=== PATIENT | male | born 1930 | race Caucasian/White ===

== ENCOUNTER 2016-06-23 12:51 | Inpatient (IN) | payer MEDICARE ==
[2016-06-23] MEDS ORDERED: SODIUM CHLORIDE 0.9% 10 ML FLUSH FLUSH PRN (13:31)
--- NOTE | 2016-06-23 13:42 | EDPRACDOC ---
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 FELL ON CONCRETE. STATES HE TRIED TO STAND, BUT WAS UNABLE TO DO SO. NO OTHER INJURY REPORT. PT DENIES PAIN UNLESS HE MOVES. Pain Severity: Reports: Moderate Injuries/Pain Location: Reports: pelvis, lower extremity Reason for Fall: Reports: tripped Loss of Consciousness: no loss of consciousness Modifying Factors: improves with: movement Associated Symptoms (Fall): Reports: denies symptoms <Stephanie Evans - Last Filed: 06/23/16 14:47> <Yo Lorenzo - Last Filed: 06/23/16 14:57> - General Chief Complaint: Fall Stated Complaint: FALL, L LEG PAIN Time Seen by Provider: 06/23/16 12:56 - History of Present Illness Allergies/Adverse Reactions: Allergies No Known Allergies Allergy (Verified 06/23/16 14:47) Home Medications: Ambulatory Orders Allopurinol [Zyloprim] 100 mg PO DAILY 04/30/13 Gabapentin [Neurontin] 800 mg PO DAILY 04/30/13 Amiodarone [Cordarone, Pacerone] 200 mg PO DAILY 05/30/16 Lisinopril [Prinivil] 20 mg PO DAILY 05/30/16 Albuterol/Ipratropium Neb [Duoneb] 3 ml NEB Q6H #40 nebu 06/06/16 Guaifenesin [Mucinex] 1,200 mg PO BID #20 tbmp.12hr 06/06/16 Levalbuterol [Xopenex Hfa] 15 gm IH Q6 #2 inh 06/06/16 Prednisone 10 mg PO DAILY #20 tab.ds.pk 06/06/16 ED Past Medical History - History Reviewed Yes Nurses notes reviewed and agree except as marked - Patient Medical History Cardiac History: Reports: Atrial Fibrillation (NEW AFIB APR 2013), Hypertension , Hypercholesterolemia. 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 Denies: Cardiac Catheterization - Family Medical History Reports: Hypertension, Cancer (mom). Denies: Diabetes, Stroke, Cardiac Disorders - Social Medical History Smoking Status: Former smoker Social History: Denies: Substance Use Disorder <Stephanie Evans - Last Filed: 06/23/16 14:47> EDM Review of Systems - Review of Systems ROS Negative Except as Marked: Yes All systems reviewed and were negative except as marked Constitutional: No Symptoms Reported Respiratory: No Symptoms Reported Cardiovascular: No Symptoms Reported Gastrointestinal: No Symptoms Reported Neurological: No Symptoms Reported Musculoskeletal: Hip, Knee Integumentary: No Symptoms Reported <Stephanie Evans - Last Filed: 06/23/16 14:47> - Physical Exam Constitutional: Alert (Awake), No apparent distress Oriented to: Time, Person, Place Last recorded Vital Signs: Last Vital Signs Temp 98.3 F 06/23/16 12:52 Pulse 90 06/23/16 12:52 Resp 20 06/23/16 12:52 BP 153/69 06/23/16 12:52 Pulse Ox 93 06/23/16 12:52 Oxygen Pulse Oxygen Saturation 93 O2 Device Nasal Cannula Oxygen Flow Rate 2.5 Fraction of Inspired Oxygen ( FIO2) - HEENT Head: Normal Eye Exam: Normal Neck: Normal, Denies Pain, Midline - Respiratory/Cardiovascular Respiratory: Normal - CTA Cardiovascular: Normal - GI Palpation: Normal Tenderness: Non tender - Musculoskeletal Back: Normal Extremities: Other (NOTED EXTERNAL ROTATION OF LEFT LEG; TENDERNESS WITH MOVEMENT OF KNEE/HIP ONLY; NO TTP; NO BRUISING OR APPARENT DEFORMITY; PEDAL PULSES INTACT) - Integumentary Skin: Normal Lymphatics: Normal - Neurologic Cerebellar: Normal Mood Description: Normal Thought: Coherent Perception: Normal <Stephanie Evans - Last Filed: 06/23/16 14:47> - Physical Exam Last recorded Vital Signs: Last Vital Signs Temp 98.3 F 06/23/16 12:52 Pulse 89 06/23/16 14:03 Resp 20 06/23/16 12:52 BP 142/63 06/23/16 14:03 Pulse Ox 90 L 06/23/16 14:03 Oxygen Pulse Oxygen Saturation 90 O2 Device Nasal Cannula Oxygen Flow Rate 2.5 Fraction of Inspired Oxygen ( FIO2) <Yo Lorenzo - Last Filed: 06/23/16 14:57> - Results 06/23/16 13:14 06/23/16 13:14 <Stephanie Evans K - Last Filed: 06/23/16 14:47> - Results 06/23/16 13:14 06/23/16 13:14 WBC 15.8 xk/uL (3.8-10.8) H 06/23/16 13:14 RBC 4.86 xM/uL (4.70-6.10) 06/23/16 13:14 Hgb 13.0 g/dL (14.0-18.0) L 06/23/16 13:14 Hct 40.6 % (42-52) L 06/23/16 13:14 MCV 84 fL (80-94) 06/23/16 13:14 MCH 26.7 pg (27-32) L 06/23/16 13:14 MCHC 32.0 g/dl (33-36) L 06/23/16 13:14 RDW 15.3 % (11.5-14.5) H 06/23/16 13:14 Plt Count 165 xk/uL (130-400) 06/23/16 13:14 MPV 7.7 fL (7.4-10.4) 06/23/16 13:14 PT 10.6 SEC (9.2-11.2) 06/23/16 13:14 INR 1.0 06/23/16 13:14 APTT 33.8 SEC (22-35) 06/23/16 13:14 Sodium 139 mEq/L (137-146) 06/23/16 13:14 Potassium 3.3 mEq/L (3.5-5.1) L 06/23/16 13:14 Chloride 103 mEq/L (98-107) 06/23/16 13:14 Carbon Dioxide 27 mMOL/L (22-33) 06/23/16 13:14 Anion Gap 12 mEq/L (8-16) 06/23/16 13:14 BUN 16 MG/DL (9-20) 06/23/16 13:14 Creatinine 0.80 MG/DL (0.66-1.25) 06/23/16 13:14 Estimated GFR (MDRD) > 60 mL/min (>=60) 06/23/16 13:14 Glucose 97 MG/DL (70-99) 06/23/16 13:14 Calculated Osmolality 269 MOs/Kg (270-290) L 06/23/16 13:14 Calcium 8.0 MG/DL (8.4-10.2) L 06/23/16 13:14 Corrected Calcium 8.7 MG/DL (8.4-10.2) 06/23/16 13:14 Total Bilirubin 1.0 MG/DL (0.2-1.3) 06/23/16 13:14 AST 30 IU/L (17-59) 06/23/16 13:14 ALT 39 IU/L (21-72) 06/23/16 13:14 Alkaline Phosphatase 92 IU/L (50-160) 06/23/16 13:14 Troponin I < 0.01 ng/mL (<.04) 06/23/16 13:14 Total Protein 5.9 G/DL (6.3-8.2) L 06/23/16 13:14 Albumin 3.3 G/DL (3.5-5.0) L 06/23/16 13:14 Lab Results 06/23/16 06/23/16 06/23/16 13:14 13:14 13:14 WBC 15.8 H RBC 4.86 Hgb 13.0 L Hct 40.6 L MCV 84 MCH 26.7 L MCHC 32.0 L RDW 15.3 H Plt Count 165 MPV 7.7 PT 10.6 INR 1.0 APTT 33.8 Sodium 139 Potassium 3.3 L Chloride 103 Carbon Dioxide 27 Anion Gap 12 BUN 16 Creatinine 0.80 Estimated GFR (MDRD) > 60 Glucose 97 Calculated Osmolality 269 L Calcium 8.0 L Corrected Calcium 8.7 Total Bilirubin 1.0 AST 30 ALT 39 Alkaline Phosphatase 92 Troponin I < 0.01 Total Protein 5.9 L Albumin 3.3 L <Yo Lorenzo - Last Filed: 06/23/16 14:57> - Departure Disposition: Admit IP To This Hospital Education/Counseling Given To: Patient, Family Member Education/Counseling Given Regarding: Diagnosis, Treatment, Follow Up - Physician Consulted Orthopedics Time Called: 14:49 Provider Called: Cash Rush [employer] Lead Returned Call: 14:49 <Stephanie Evans - Last Filed: 06/23/16 14:47> - Departure Yes I personally saw and evaluated the patient. Disposition: Admit IP To This Hospital Decision to Admit Time: 14:57 Decision to admit date: 06/23/16 Decision to admit: from ED - Physician Consulted Hospitalist Time Called: 14:57 Provider Called: Yogesh Bobby [employer] Lead Returned Call: 14:57 <Yo Lorenzo - Last Filed: 06/23/16 14:57> - Departure Condition: Stable Final Diagnosis: Hip fracture Qualifiers: Encounter type: initial encounter Fracture type: closed Laterality: left Qualified Code(s): S72.002A - Fracture of unspecified part of neck of left femur , initial encounter for closed fracture Referrals: Rylee Fortune MD [Primary Care Provider] - One Week
--- NOTE | 2016-06-23 14:02 | DIRPT ---
CLINICAL DATA: Status post fall today. Left hip pain. Initial encounter. EXAM: LEFT HIP (WITH PELVIS) 2-3 VIEWS COMPARISON: None. FINDINGS: The patient has an acute subcapital left hip fracture with approximately 1/2 shaft with superior displacement of the femoral neck. Femoral head is located. No other acute abnormality is identified. IMPRESSION: Acute subcapital left hip fracture as described. Electronically Signed By: Carlos Alberto Gregory M.D. On: 06/23/2016 14:00
--- NOTE | 2016-06-23 14:03 | DIRPT ---
CLINICAL DATA: Fall, left hip and knee pain. EXAM: LEFT FEMUR - 2 VIEW COMPARISON: None. FINDINGS: Two views of the lower left femur are provided. The mid and lower portions of the left femur appear intact and well aligned throughout. Bone mineralization is unremarkable. Soft tissues are unremarkable. IMPRESSION: Negative exam of the mid and lower portions of the left femur. Electronically Signed By: Cameron Foreman M.D. On: 06/23/2016 14:01
--- NOTE | 2016-06-23 14:03 | DIRPT ---
CLINICAL DATA: Fall with lower extremity pain. EXAM: CHEST 1 VIEW COMPARISON: 06/03/2016 and multiple previous FINDINGS: Heart size is normal. There is atherosclerosis of the aorta. Abnormal interstitial pulmonary opacity bilaterally appears similar to the multiple films of May. No dense consolidation or collapse. No effusions. No acute bone finding. IMPRESSION: Bilateral interstitial pulmonary density similar to the multiple exams of last month. No worsened consolidation or collapse. Electronically Signed By: Hitesh Mitchell M.D. On: 06/23/2016 14:01
--- NOTE | 2016-06-23 14:04 | DIRPT ---
CLINICAL DATA: Knee pain after mechanical fall. EXAM: LEFT KNEE - COMPLETE 4+ VIEW COMPARISON: None. FINDINGS: No fracture of the proximal tibia or distal femur. Patella is normal. No joint effusion. There is spurring of the superior and inferior aspect of patella. IMPRESSION: 1. No acute osseous abnormality. 2. Degenerate change of the patellofemoral compartment. Electronically Signed By: Panchito Quiroz M.D. On: 06/23/2016 14:01
[2016-06-23 14:07] LABS: MPV 7.7 fL (7.4-10.4)
[2016-06-23 14:17] LABS: BLOOD UREA NITROGEN 16 MG/DL (9-20); CALC CORRECTED 8.7 MG/DL (8.4-10.2); CALCULATED OSMOLALITY 269 MOs/Kg (270-290); CHLORIDE 103 mEq/L (98-107); GLUCOSE 97 MG/DL (70-99); SODIUM LEVEL 139 mEq/L (137-146); TOTAL PROTEIN 5.9 G/DL (6.3-8.2)
[2016-06-23 14:26] LABS: PARTIAL THROMB. TIME 33.8 SEC (22-35)
[2016-06-23] MEDS ORDERED: HYDROmorphone 1 MG INJECTION IV ONE (14:41)
[2016-06-23 15:00] LABS: SEG NEUTROPHIL 40 % (45-76)
--- NOTE | 2016-06-23 15:09 | PCM.ORTHCO ---
Consultation Date: 06/23/16 Reason for Consult: Fracture (left hip) - History of Present Illness Mr. Abdalla is am 85 year old male who presented to the ED with left hip pain and inability to bear weight on the left leg after a fall while at home earlier today. He was putting his laundry away, felt his leg go from under him, and fell onto the knee. The floor was concrete. Denies knee pain at this time. He lives at home with his . He ambulates at home without AD, but does use a walker when out of the house. Denies numbness or tingling. He does have a history of hypertension, arrhythmia, and leukemia. Patient was recently being treated for pneumonia as well. Chief Complaint: left hip pain - Past Medical and Surgical History Cardiac History: Reports: Atrial Fibrillation (NEW AFIB APR 2013), Hypertension , Hypercholesterolemia. 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 Denies: Cardiac Catheterization Allergies No Known Allergies Allergy (Verified 06/23/16 14:47) Home Medications Allopurinol [Zyloprim] 100 mg PO DAILY 04/30/13 Gabapentin [Neurontin] 800 mg PO DAILY 04/30/13 Amiodarone [Cordarone, Pacerone] 200 mg PO DAILY 05/30/16 Lisinopril [Prinivil] 20 mg PO DAILY 05/30/16 Albuterol/Ipratropium Neb [Duoneb] 3 ml NEB Q6H #40 nebu 06/06/16 Guaifenesin [Mucinex] 1,200 mg PO BID #20 tbmp.12hr 06/06/16 Levalbuterol [Xopenex Hfa] 15 gm IH Q6 #2 inh 06/06/16 Prednisone 10 mg PO DAILY #20 tab.ds.pk 06/06/16 - Social History Lives: with Spouse Smoking Status: Former smoker Social History: Denies: Substance Use Disorder - Family History Reports: Hypertension, Cancer (mom). Denies: Diabetes, Stroke, Cardiac Disorders - Review of Systems Constitutional: negative: Chills, Fever Respiratory: negative: Shortness of Breath Cardiovascular: negative: Chest Pain Genitourinary: negative: Bleeding Neurological: negative: Numbness, Tingling Musculoskeletal:: Joint Pain (left hip pain with movement) - Physical Exam Vital Signs: Initial Vitals Temperature 98.3 F 06/23/16 12:52 Pulse Rate 90 06/23/16 12:52 Respiratory Rate 20 06/23/16 12:52 Blood Pressure 153/69 06/23/16 12:52 Pulse Oxygen Saturation 93 06/23/16 12:52 Constitutional: No apparent distress, Alert, Well appearing Oriented to: Time, Person, Place - HEENT Head: Normal - Musculoskeletal Extremities: Pedal Pulse, Other (LLE is externally rotated. No significant tenderness about the left hip. Left knee is nontender to palpation. Plantarflexion and dorsiflexion intact. SITLT.) - Neurologic Memory Impaired: Normal Motor Function: Normal Cerebellar: Normal Mood Description: Normal Thought: Coherent Perception: Normal - Lab Results 06/23/16 13:14 06/23/16 13:14 - Diagnostic Findings Exam(s): [id number] RAD/DG HIP COMPLETE 2+V-L CLINICAL DATA: Status post fall today. Left hip pain. Initial encounter. EXAM: LEFT HIP (WITH PELVIS) 2-3 VIEWS COMPARISON: None. FINDINGS: The patient has an acute subcapital left hip fracture with approximately 1/2 shaft with superior displacement of the femoral neck. Femoral head is located. No other acute abnormality is identified. IMPRESSION: Acute subcapital left hip fracture as described. Electronically Signed By: Carlos Albetro Gregory M.D. On: 06/23/2016 14:00 - Assessment/Plan (1) Subcapital fracture of neck of left femur S72.012A - UNSP INTRACAPSULAR FRACTURE OF LEFT FEMUR, INIT FOR CLOS FX Acute Present on Admission: Yes Case Care Discussed with: Patient, Family Plan: Risks and benefits of surgery discussed with patient and family. Risks include but not limited to infection, damage to blood vessels and nerves, risks of anesthesia, need for further surgery, and blood clots. Agree to proceed. Consent was obtained/signed. Plan for left hip hemiarthroplasty tomorrow morning with Dr. Rush. Continue pain management
[2016-06-23 15:12] LABS: LEUKOCYTES/URINE NEG (NEGATIVE); NITRITE/URINE NEG (NEGATIVE); RBC/URINE 0-2 (0-2); URINE OCCULT BLOOD NEG (NEG/TRACE); WBC/URINE 0-2 (0-2)
[2016-06-23] MEDS ORDERED: CHLORHEXIDINE (HIBICLENS) 4 OZ BOTTLE TOP ONE ×2 (15:19→15:48)
--- NOTE | 2016-06-23 15:27 | HISTPHYS ---
- Chief Complaint Fell at home broke my left hip today - History of Present Illness Patient is a very pleasant 85-year-old white male brought into emergency room after falling and hitting his left hip on the concrete floor at home today when he states his left leg shifted. He has a history of CLL, gout, post herpetic neuralgia, mild hypertension on p.r.n. lisinopril, interstitial scarring chest x-ray with recent respiratory tract infection, atrial fibrillation and Xarelto was discontinued due to heme-positive stools. His atrial fib is controlled with amiodarone and he takes aspirin as an anticoagulant. He used to see Dr. Lopez for his atrial fib, but has no battery loader at this point time. 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 - Medical History Cardiac History: Reports: Atrial Fibrillation (NEW AFIB APR 2013), Hypertension , Hypercholesterolemia. Denies: Heart Attack, Cardiac Catheterization Respiratory History: Reports: Emphysema (Former smoker). 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 Denies: Cardiac Catheterization Pilonidal cyst removed as teenager - Medictions/Allergies Allergies No Known Allergies Allergy (Verified 06/23/16 14:47) Current Medication List: Reviewed Home Medications Allopurinol [Zyloprim] 100 mg PO DAILY 04/30/13 Gabapentin [Neurontin] 800 mg PO DAILY 04/30/13 Amiodarone [Cordarone, Pacerone] 200 mg PO DAILY 05/30/16 Lisinopril [Prinivil] 20 mg PO DAILY 05/30/16 Albuterol/Ipratropium Neb [Duoneb] 3 ml NEB Q6H #40 nebu 06/06/16 Guaifenesin [Mucinex] 1,200 mg PO BID #20 tbmp.12hr 06/06/16 Levalbuterol [Xopenex Hfa] 15 gm IH Q6 #2 inh 06/06/16 Prednisone 10 mg PO DAILY #20 tab.ds.pk 06/06/16 - Family History Reports: Hypertension, Cancer (mom). Denies: Diabetes, Stroke, Cardiac Disorders - Social History Travel Outside of [place] in the Last 3 Months?: No Lives: with Spouse Smoking Status: Former smoker Social History: Reports: Alcohol Use. Denies: Substance Use Disorder - Review of Systems Constitutional: No Symptoms Reported (No Fever, chills, wt loss/gain, diaphoresis,fatigue/malaise.) Eyes: No Symptoms Reported (No blurry vision, visual changes, eye pain, or eye redness.) Ears: No Symptoms Reported (No ear pain or discharge) Nose: No Symptoms Reported (No nasal discharge/congestion or bleeding) Mouth: No Symptoms Reported (No oropharyngeal lesions or erythema) Throat/Neck: No Symptoms Reported (No throat pain or swelling.No oropharyngeal lesions or erythema.) Respiratory: No Symptoms Reported (No cough, wheezing, or shortness of breath.) Cardiovascular: No Symptoms Reported (No chest pain or palpitations.) Gastrointestinal: No Symptoms Reported (No abdominal pain, nausea, vomiting, diarrhea, constipation, or bloody stool.) Genitourinary: No Symptoms Reported (No dysuria or hematuria.) Neurological: Other (Post herpetic neuralgia) Musculoskeletal:: Gout (Many years ago) Integumentary: No Symptoms Reported (no rashes or lesions) Allergic/Immunologic: No Symptoms Reported (no rashes or lesions) Hematologic: No Symptoms Reported (No chronic anemia, bleeding, or easy bruising.), Other (Xarelto had to be stopped due to heme-positive stools) Endocrine: No Symptoms Reported (No thyroid issues, polyuria, or polydipsia.) Psychiatric: No Symptoms Reported (Fully oriented, with normal and appropriate affect.) - Physical Exam Vital Signs: Initial Vitals Temperature 98.3 F 06/23/16 12:52 Pulse Rate 90 06/23/16 12:52 Respiratory Rate 20 06/23/16 12:52 Blood Pressure 153/69 06/23/16 12:52 Pulse Oxygen Saturation 93 06/23/16 12:52 Constitutional: Alert (Awake, Fully oriented. Normal and appropriate affect.Well appearing. Well nourished.), No apparent distress Oriented to: Time, Person, Place - HEENT Head: Normal (normocephalic, atraumatic.), Other (No cervical lymphadenopathy. No supraclavicular lymphadenopathy. Neck: No palpable mass, supple , trachea midline.) Eye: Normal (pupils equal, reactive to light, and round; EOMI, Sclera white) Oropharynx: Normal (Pharynx: Moist without exudate,Gums-no swelling, No oropharyngeal lesions or erythema, Mucous membranes are dry.) Tympanic Membrane: Normal (no discharge) ENT EAC: Normal (No oropharyngeal lesions or erythema. Mucous membranes are dry. ) TMJ: Normal Nose: No Symptoms Reported (septum midline, Nares patent, without discharge or bleeding.) Respiratory: Normal - CTA (Clear to auscultation bilaterally. No wheezing, rales , rhonchi. Chest wall movements are symmetric. No use of accessory muscles to breathe.) Cardiovascular: Normal (RRR , Normal S1, S2. No murmurs, rubs, or gallops. PMI non-displaced. Carotids: no carotid bruits. No bradycardia or tachycardia. DP pulses 2+ bilaterally.) - GI Auscultation: Normal (normal active sounds) Palpation: Normal (Soft,non distended,nontender. No hepatosplenomegaly.) Tenderness: Non tender (No rebound or guarding) Gregory's Sign: Negative - Musculoskeletal Back: Normal (Non-Tender) Extremities: Normal (Normal tone, DP pulses 2+ bilaterally, No cyanosis or edema bilaterally, FROM bilaterally.) Spine: non-tender - Integumentary Skin: Normal (Clean, dry, and intact. No rashes. No lesions.) Lymphatics: Normal (No cervical lymphadenopathy. No supraclavicular lymphadenopathy.) - Neurologic Memory Impaired: Normal Motor Function: Normal (Motor 5/5 throughout.Normal tone, Pulses 2+ No cyanosis or edema, FROM) Cranial Nerve: Normal (CN II-XII intact sensation, strength 5/5) Cerebellar: Normal (Babinski: toes downgoing bilaterally. Intact Finger to nose. Sensory grossly intact to light touch. Intact rapid alternating movements bilaterally. No pronator drift.) Mood Description: Normal (Fully oriented. Normal and appropriate affect.) Thought: Coherent Perception: Normal (Normal and appropriate affect.) - Focused CV Perfusion Exam Vital Signs: Last Vital Signs Temp 98.3 F 06/23/16 12:52 Pulse 89 06/23/16 14:03 Resp 20 06/23/16 12:52 BP 142/63 06/23/16 14:03 Pulse Ox 90 L 06/23/16 14:03 - Lab Results 06/23/16 13:14 06/23/16 13:14 Laboratory Results - last 24 hr 06/23/16 06/23/16 06/23/16 13:14 13:14 13:14 WBC 15.8 H RBC 4.86 Hgb 13.0 L Hct 40.6 L MCV 84 MCH 26.7 L MCHC 32.0 L RDW 15.3 H Plt Count 165 MPV 7.7 Neut % (Auto) Cancelled Lymph % (Auto) Cancelled Winn % (Auto) Cancelled Eos % (Auto) Cancelled Baso % (Auto) Cancelled Absolute Neuts (auto) Cancelled Absolute Lymphs (auto) Cancelled Seg Neuts % (Manual) 40 L Band Neutrophils % 2 Lymphocytes % (Manual) 51 H Monocytes % (Manual) 5 Eosinophils % (Manual) 2 Absolute Neutrophils 6.64 Absolute Lymphocytes 8.06 H Atypical Lymphocytes Mod amt Platelet Estimate Norm RBC Morphology Norm PT 10.6 INR 1.0 APTT 33.8 Sodium 139 Potassium 3.3 L Chloride 103 Carbon Dioxide 27 Anion Gap 12 BUN 16 Creatinine 0.80 Estimated GFR (MDRD) > 60 Glucose 97 Calculated Osmolality 269 L Calcium 8.0 L Corrected Calcium 8.7 Total Bilirubin 1.0 AST 30 ALT 39 Alkaline Phosphatase 92 Troponin I < 0.01 Total Protein 5.9 L Albumin 3.3 L Urine Color Urine Clarity Urine pH Ur Specific [place] Urine Protein Urine Glucose (UA) Urine Ketones Urine Occult Blood Urine Nitrite Urine Bilirubin Urine Urobilinogen Ur Leukocyte Esterase Urine RBC Urine WBC Urine Bacteria Hyaline Casts Urine Mucus Blood Type Antibody Screen 06/23/16 06/23/16 06/23/16 14:28 14:42 17:00 WBC RBC Hgb Hct MCV MCH MCHC RDW Plt Count MPV Neut % (Auto) Lymph % (Auto) Winn % (Auto) Eos % (Auto) Baso % (Auto) Absolute Neuts (auto) Absolute Lymphs (auto) Seg Neuts % (Manual) Band Neutrophils % Lymphocytes % (Manual) Monocytes % (Manual) Eosinophils % (Manual) Absolute Neutrophils Absolute Lymphocytes Atypical Lymphocytes Platelet Estimate RBC Morphology PT INR APTT Sodium Potassium Chloride Carbon Dioxide Anion Gap BUN Creatinine Estimated GFR (MDRD) Glucose Calculated Osmolality Calcium Corrected Calcium Total Bilirubin AST ALT Alkaline Phosphatase Troponin I < 0.01 Total Protein Albumin Urine Color Yellow Urine Clarity Clear Urine pH 6.0 Ur Specific [place] 1.005 Urine Protein 1+ H Urine Glucose (UA) Neg Urine Ketones Neg Urine Occult Blood Neg Urine Nitrite Neg Urine Bilirubin Neg Urine Urobilinogen 2 H Ur Leukocyte Esterase Neg Urine RBC 0-2 Urine WBC 0-2 Urine Bacteria Few Hyaline Casts 2-5 H Urine Mucus Mod H Blood Type O POSITIVE Antibody Screen Negative - Diagnostic Findings Left hip x-ray: Acute subcapital left hip fracture as described. - Assessment (1) Subcapital fracture of neck of left femur S72.012A - UNSP INTRACAPSULAR FRACTURE OF LEFT FEMUR, INIT FOR CLOS FX Acute Present on Admission: Yes Orthopedic consult obtained to get left hemiarthroplasty tomorrow. Patient only taking aspirin 81 mg daily preoperatively as he is unable to tolerate Xarelto. (2) Post herpetic neuralgia B02.29 - OTHER POSTHERPETIC NERVOUS SYSTEM INVOLVEMENT Chronic Present on Admission: Yes Continue gabapentin (3) CLL (chronic lymphocytic leukemia) C91.10 - CHRONIC LYMPHOCYTIC LEUK OF B-CELL TYPE NOT ACHIEVE REMIS Chronic Present on Admission: Yes Monitor counts. White blood cell counts have been stable. (4) Paroxysmal atrial fibrillation I48.0 - PAROXYSMAL ATRIAL FIBRILLATION Chronic Present on Admission: Yes Not taking Xarelto due to heme-positive stools. Control with amiodarone. Case Care Discussed with: Patient, Family, Nursing Staff, Resource Management Total Time: Time spent process One Hour 22 minutes Critical Care: No Code: [id number]
[2016-06-23] MEDS ORDERED: MUPIROCIN 2% OINT 22 GM TUBE NAS SCH (16:00)
[2016-06-23] MEDS: NS/KCl 20 mEq 1,000 ML IV SCH (16:58)
[2016-06-23 17:08] VITALS: BMI 27.1
[2016-06-23] MEDS ORDERED: Vaccine Screening Complete SCH (18:00)
[2016-06-23] MEDS: MORPHINE 2 MG/ML INJECTION IV PRN ×2 (18:04→21:45)
[2016-06-23] MEDS ORDERED: LISINOPRIL 20 MG TAB PO PRN (20:28)
[2016-06-23] MEDS ORDERED: Magnesium Sulfate 2 gm/D5W 2 GM/50 ML RTU IV ONE (21:00)
[2016-06-23] MEDS: POTASSIUM CHLORIDE 20 MEQ TAB PO SCH ×2 (21:05→23:25)
[2016-06-23] MEDS: ACETAMINOPHEN 325 MG/TAB TABLET PO SCH (21:06)
[2016-06-23] MEDS: Albuterol/Ipratropium Neb 3 ML NEB NEB SCH (21:14)
[2016-06-24] MEDS: Albuterol/Ipratropium Neb 3 ML NEB NEB SCH ×4 (02:37→19:14)
[2016-06-24] MEDS: MORPHINE 2 MG/ML INJECTION IV PRN ×3 (03:37→09:36)
[2016-06-24] MEDS: ACETAMINOPHEN 325 MG/TAB TABLET PO SCH ×3 (04:45→21:13)
[2016-06-24] MEDS ORDERED: CEFAZOLIN 1 GM VIAL IV ONE (08:00)
[2016-06-24] MEDS: AMIODARONE 200 MG TAB PO SCH (09:36)
[2016-06-24] MEDS: GABAPENTIN 800 MG TAB PO SCH (09:39)
[2016-06-24] MEDS: ALLOPURINOL 100 MG TAB PO SCH (09:40)
[2016-06-24] MEDS ORDERED: SUCCINYLCHOLINE 20 MG/1 ML INJ 10 ML MDV IV ONE (10:00)
[2016-06-24] MEDS ORDERED: FENTANYL 100 MCG/2 ML VIAL IV ONE (10:00)
[2016-06-24] MEDS ORDERED: PHENYLEPHRINE 10 MG/ML VIAL IC ONE (10:00)
[2016-06-24] MEDS ORDERED: LIDOCAINE 100 MG PFS IV ONE (10:00)
[2016-06-24] MEDS ORDERED: GLYCOPYRROLATE 1 MG VIAL IM ONE (10:00)
[2016-06-24] MEDS ORDERED: PROPOFOL 200 MG/20 ML VIAL IV ONE (10:00)
[2016-06-24] MEDS ORDERED: NEOSTIGMINE 1 MG/1 ML (1:1000) INJ 10 ML MDV IM ONE (10:00)
--- NOTE | 2016-06-24 10:14 | HIM.ANES ---
Anesthesia Evaluation & Plan - Focused Review of Systems Cardiac History: Yes: Hx Hypertension, Hx Afib/Aflutter, Hx Cardiac Disorders, Hx Abnormal Cholesterol/Hyperlipidemia No: Hx Heart Attack, Hx Cardiac Catheterization, Hx Deep Vein Thrombosis HEENT: Yes: Cataracts, Other HEENT Problems Respiratory: Yes: Hx Emphysema (Former smoker), Hx Home O2 (2.5 l/m), Hx Recent Cold/Flu No: Hx Pneumonia Gastrointestinal: Yes: Hx Gastroesophageal Reflux Disease, Hx Gastrointestinal Disorders Neurological/Musculoskeletal: No: Hx Neurological Disorders Psychological: No Hx Depression, No Hx Mental/Emotional Disorders Blood/Autoimmune: No: Hx Blood Transfusions, Hx AIDS, Hx Hepatitis (type) Smoking Status: Former smoker Past Social History: Reports: Alcohol Use. Denies: Substance Use Disorder Hx Echocardiogram (date): Yes (1. There is normal global left ventricular contractility.) Hx Chest Xray (date): Yes (06/23/15) Surgical History: Yes: T&A - Focused Physical Exam NPO since: 0000 Any problems with anesthesia, including nausea and vomiting?: No Any relatives with a history of Malignant Hyperthermia?: No Beta Fausto given (if appropriate): No Other: Problem List Problem Status Onset Hip fracture Acute Subcapital fracture of neck of left femur Acute Paroxysmal atrial fibrillation Chronic Acute respiratory failure with hypoxia Acute Pneumonia due to aerobic bacteria Acute Severe sepsis Acute Atrial fibrillation Chronic CLL (chronic lymphocytic leukemia) Chronic Hyperlipidemia Chronic Hypertension Chronic Post herpetic neuralgia Chronic CHF (congestive heart failure) Suspected Pneumonia Suspected PT/PTT/INR/ PT 10.6 SEC (9.2-11.2) 06/23/16 13:14 INR 1.0 06/23/16 13:14 APTT 33.8 SEC (22-35) 06/23/16 13:14 Allergies Allergy/AdvReac Type Severity Reaction Status Date / Time No Known Allergies Allergy Verified 06/23/16 16:51 Home Medications Medication Instructions Recorded Last Taken Type Allopurinol [Zyloprim] 100 mg PO DAILY 04/30/13 06/23/16 History Gabapentin [Neurontin] 800 mg PO DAILY 04/30/13 06/22/16 History Amiodarone [Cordarone, Pacerone] 200 mg PO DAILY 05/30/16 06/23/16 History Lisinopril [Prinivil] 20 mg PO DAILY 05/30/16 06/22/16 History Albuterol/Ipratropium Neb [Duoneb] 3 ml NEB Q6H #40 nebu 06/06/16 06/21/16 Rx Guaifenesin [Mucinex] 1,200 mg PO BID #20 tbmp.12hr 06/06/16 06/16/16 Rx Levalbuterol [Xopenex Hfa] 15 gm IH Q6 #2 inh 06/06/16 06/22/16 Rx Prednisone 10 mg PO DAILY #20 tab.ds.pk 06/06/16 06/23/16 Rx Ascorbic Acid [Vitamin C] 1,000 mg PO DAILY 06/23/16 06/23/16 History Aspirin (Enteric Coated) [Ecotrin] 81 mg PO DAILY 06/23/16 06/23/16 History Height and Weight Patient's height 5 ft 8 in Patient's weight 80.881 kg Weight (Calculated Kilograms) 80.881 BMI 27.1 Vital Signs Temperature 98.6 F 06/24/16 09:38 Pulse Rate 89 06/24/16 09:38 Respiratory Rate 20 06/24/16 09:38 Blood Pressure 172/83 06/24/16 09:38 Pulse Oxygen Saturation 93 06/24/16 09:38 - Anesthetic Plan -: I have examined this patient and reviewed the medical record. The patient has been assessed prior to anesthesia. Risks and benefits of anesthesia and anesthetic technique options have been discussed and all questions answered. The patient accepts the risk and desires me to proceed with the planned anesthetic.
--- NOTE | 2016-06-24 10:15 | HIM.ANES ---
Anesthesia Evaluation & Plan Diagnoses: subcapital fx neck of femur, left Consented Procedure: left hemiarthroplasty Surgeon:: Cash Rush - Focused Review of Systems Cardiac History: Yes: Hx Hypertension, Hx Afib/Aflutter, Hx Cardiac Disorders, Hx Abnormal Cholesterol/Hyperlipidemia No: Hx Heart Attack, Hx Cardiac Catheterization, Hx Deep Vein Thrombosis HEENT: Yes: Cataracts, Other HEENT Problems Respiratory: Yes: Hx Emphysema (Former smoker), Hx Home O2 (2.5 l/m), Hx Recent Cold/Flu No: Hx Pneumonia Gastrointestinal: Yes: Hx Gastroesophageal Reflux Disease, Hx Gastrointestinal Disorders Neurological/Musculoskeletal: No: Hx Neurological Disorders Psychological: No Hx Depression, No Hx Mental/Emotional Disorders Blood/Autoimmune: No: Hx Blood Transfusions, Hx AIDS, Hx Hepatitis (type) Smoking Status: Former smoker Past Social History: Reports: Alcohol Use. Denies: Substance Use Disorder Hx Chest Xray (date): Yes (06/23/15) Surgical History: Yes: T&A - Focused Physical Exam NPO since: 0000 Neck: Full Range of Motion Cardiovascular/Chest: Normal (RRR no mumurs or rubs.) Respiratory: Lungs clear. negative: Rhonchi, Wheezing Any problems with anesthesia, including nausea and vomiting?: No Any relatives with a history of Malignant Hyperthermia?: No Does patient have a history of Malignant Hyperthermia?: No Beta Fausto given (if appropriate): No Does the patient have a history of Motion Sickness-: No Other: Problem List Problem Status Onset Hip fracture Acute Subcapital fracture of neck of left femur Acute Paroxysmal atrial fibrillation Chronic Acute respiratory failure with hypoxia Acute Pneumonia due to aerobic bacteria Acute Severe sepsis Acute Atrial fibrillation Chronic CLL (chronic lymphocytic leukemia) Chronic Hyperlipidemia Chronic Hypertension Chronic Post herpetic neuralgia Chronic CHF (congestive heart failure) Suspected Pneumonia Suspected PT/PTT/INR/ PT 10.6 SEC (9.2-11.2) 06/23/16 13:14 INR 1.0 06/23/16 13:14 APTT 33.8 SEC (22-35) 06/23/16 13:14 Allergies Allergy/AdvReac Type Severity Reaction Status Date / Time No Known Allergies Allergy Verified 06/23/16 16:51 Home Medications Medication Instructions Recorded Last Taken Type Allopurinol [Zyloprim] 100 mg PO DAILY 04/30/13 06/23/16 History Gabapentin [Neurontin] 800 mg PO DAILY 04/30/13 06/22/16 History Amiodarone [Cordarone, Pacerone] 200 mg PO DAILY 05/30/16 06/23/16 History Lisinopril [Prinivil] 20 mg PO DAILY 05/30/16 06/22/16 History Albuterol/Ipratropium Neb [Duoneb] 3 ml NEB Q6H #40 nebu 06/06/16 06/21/16 Rx Guaifenesin [Mucinex] 1,200 mg PO BID #20 tbmp.12hr 06/06/16 06/16/16 Rx Levalbuterol [Xopenex Hfa] 15 gm IH Q6 #2 inh 06/06/16 06/22/16 Rx Prednisone 10 mg PO DAILY #20 tab.ds.pk 06/06/16 06/23/16 Rx Ascorbic Acid [Vitamin C] 1,000 mg PO DAILY 06/23/16 06/23/16 History Aspirin (Enteric Coated) [Ecotrin] 81 mg PO DAILY 06/23/16 06/23/16 History Height and Weight Patient's height 5 ft 8 in Patient's weight 80.881 kg Weight (Calculated Kilograms) 80.881 BMI 27.1 Vital Signs Temperature 98.6 F 06/24/16 09:38 Pulse Rate 89 06/24/16 09:38 Respiratory Rate 20 06/24/16 09:38 Blood Pressure 172/83 06/24/16 09:38 Pulse Oxygen Saturation 93 06/24/16 09:38 METS - Level of Activity: Eating, Dressing, walking around house, dishwashing - Anesthetic Plan Anesthesia Type: General ASA Class: 3 -: I have examined this patient and reviewed the medical record. The patient has been assessed prior to anesthesia. Risks and benefits of anesthesia and anesthetic technique options have been discussed and all questions answered. The patient accepts the risk and desires me to proceed with the planned anesthetic.
[2016-06-24] MEDS ORDERED: FENTANYL 100 MCG/2 ML VIAL IV PRN ×2 (10:17)
[2016-06-24] MEDS ORDERED: LABETALOL 20 MG/4 ML SYRINGE IV PRN (10:17)
[2016-06-24] MEDS ORDERED: ONDANSETRON HCL 4 MG/2 ML VIAL IV PRN (10:17)
[2016-06-24] MEDS ORDERED: HYDROmorphone 1 MG INJECTION IV PRN ×2 (10:17)
[2016-06-24] MEDS ORDERED: ONDANSETRON HCL 4 MG ODT TAB PO PRN (10:17)
[2016-06-24] MEDS ORDERED: hydrALAZINE 20 MG/ML VIAL IV PRN (10:17)
[2016-06-24] MEDS ORDERED: MEPERIDINE 25 MG/ML TUBEX IV PRN (10:17)
[2016-06-24] MEDS: BUPIVACAINE 0.5% 30 ML VIAL ONE ×2 (11:26→11:50)
[2016-06-24] MEDS: LIDOCAINE 1% 30 ML VIAL (PRESERVATIVE FREE) ONE ×2 (11:26→11:50)
[2016-06-24] MEDS: VANCOMYCIN 1,000 MG VIAL INSTILL ONE ×3 (11:27→14:24)
--- NOTE | 2016-06-24 12:03 | HIMOPRPT ---
DATE OF PROCEDURE: 06/24/16 PREOPERATIVE DIAGNOSIS: Displaced femoral neck fracture of left hip. POSTOPERATIVE DIAGNOSIS: Displaced femoral neck left hip. OPERATION: Left hip hemiarthroplasty. SURGEON: Cash Rush MD RASPBERRY CHECKER: BRANDO Vieira ANESTHESIA: General endotracheal anesthesia DRAINS: None. COMPLICATIONS: None. IMPLANTS: Synthetic Substitute Metal Nikita - Titanium Stem non-cemented size 5 - Head Stainless Steel bipolar 49,-5 mm diameter DISPOSITION: Stable to recovery. ESTIMATED BLOOD LOSS: 100 mL. BRIEF HISTORY: The patient is a 85 years old M with a history of fall. Patient sustained a displaced left femoral neck fracture. Left hip hemiarthroplasty was recommended. Patient understood that the risks involved in surgery include but are not limited to infection, damage to the nerve, blood vessel, recurrent dislocation, need for further surgery, continued pain, implant failure, DVT, pulmonary embolism, stroke and even . Patient was also explained the requirement of adherence to postoperative protocol. RAISA LIZAMA showed understanding and willingness to proceed. Patient volunteered an informed consent. PROCEDURE IN DETAIL: RAISA LIZAMA was identified in the preop area. The surgical side was confirmed with the patient and marked on the skin. Patient was then returned back into the operating room. Patient was placed supine on the operating table. Spinal anesthesia was administered. Proper timeout was performed confirming the identity of the patient as well as the site of the surgery. 2 g of IV Ancef were given preoperatively within 30 min. of the surgical incision. All the bony prominences were adequately padded. The surgical area was sealed off with plastic drapes. The surgical area was scrubbed with alcohol and Betadine and finally prepped with ChloraPrep. [place] full body gowns were used. Direct anterior approach was used. This surgical incision lateral and distal to the anterior superior iliac spine was made extending distally 4 inches.Skin and the fascia was incised. Bovie was used for deeper dissection. Tensor fascia raegan was identified . The fascia of the tensor fascia raegan was incised. The muscle belly of TFL was retracted laterally. The fascia between the sartorius and TFL was incised. Branches of the circumflex femoral vessels were cauterized. Curved Cobra retractors were placed superior and inferior to the neck. An interval was then created between the anterior hip capsule and hip flexors. An anterior cobra retractor was placed above the pelvic brim. A Tshaped capsular incision was made in the anterior capsule with the base of the T laterally along the intertrochanteric line. Anterior capsulectomy was performed. The cyst. An inferior retractors were repositioned inside the capsule. A napkin ringed osteotomy was made in the femoral neck. The femoral head was retrieved and measured 49 mm . We then proceeded with the preparation of the proximal femur for the implantation of the femoral stem. Posterior superior capsules was resected for release of proximal femur. The operated leg was abducted assisted with the break in the table. External rotation of the extremity was utilized. Proximal femur was delivered laterally and proximally. Progressive reaming of the femoral canal was performed up to size 5 . We then trialed with a different size neck options. The hip was carried through full flexion, adduction and internal rotation without any dislocation. Bilateral lower extremity lengths as palpated from anterior superior iliac spine to the medial malleolus were comparable bilaterally. We found adequate stability with standard size neck, 49 mm bipolar head. The trial components were removed. The wound was copiously irrigated with normal saline. We implanted a size 5 noncemented stem, with 49,-5 mm bipolar head. Hip was again carried through range of motion and stability was satisfactory in flexion, adduction and internal and external rotation. The hip joint was irrigated with copious amount of sterile saline solution. Also prior to closure of the capsule was injected with Exparel, which was also injected into the surrounding soft tissues. The fascia of the tensor fascia raegan was closed with 2-0 Vicryl. The subcutaneous tissue was reapproximated with Vicryl and skin was closed with armando. The patient was extubated and taken to the recovery room in stable condition. RAISA tolerated the procedure well without immediate complications. DISPOSITION: Patient would be admitted to the orthopedic service. Patient will be weightbearing as tolerated on bilateral lower extremities. Patient will be started on aspirin 325 mg twice daily for DVT prophylaxis. Patient will have mechanical prophylaxis with intermittent compression devices while in bed.
[2016-06-24] MEDS ORDERED: SODIUM CHLORIDE 0.9% 3 ML FLUSH FLUSH PRN (12:16)
[2016-06-24] MEDS ORDERED: DIPHENHYDRAMINE 25 MG CAP PO PRN (12:16)
[2016-06-24] MEDS ORDERED: Aluminum;Magnesium;Simethicone 30 ML UDC PO PRN (12:16)
[2016-06-24] MEDS ORDERED: MAGNESIUM HYDROXIDE 30 ML BOTTLE PO PRN (12:16)
[2016-06-24] MEDS ORDERED: DIPHENHYDRAMINE 50 MG/ML VIAL IV PRN (12:16)
[2016-06-24] MEDS ORDERED: ALBUTEROL 0.083% 3 ML NEB NEB ONE (12:32)
--- NOTE | 2016-06-24 12:55 | DIRPT ---
CLINICAL DATA: Status post left hip replacement today for a femoral neck fracture. Initial encounter. EXAM: PELVIS - 1-2 VIEW COMPARISON: Plain films left hip 06/23/2016. FINDINGS: A new left hip arthroplasty is in place. The device is located. No fracture is identified. Gas in the soft tissues from surgery is noted. IMPRESSION: Left hip replacement without evidence of complication. Electronically Signed By: Carlos Alberto Gregory M.D. On: 06/24/2016 12:52
[2016-06-24] MEDS ORDERED: Pharmacy Order Set Alert SCH (13:00)
[2016-06-24] MEDS ORDERED: SODIUM CHLORIDE 0.9% 3 ML FLUSH FLUSH SCH (13:00)
[2016-06-24] MEDS ORDERED: NALOXONE 0.4 MG/ML AMPULE IV SCH (13:00)
[2016-06-24] MEDS ORDERED: Cefazolin 2gm/50 ml D5W 2 GM/50 ML RTU IV SCH (14:00)
[2016-06-24] MEDS: NS/KCl 20 mEq 1,000 ML IV SCH ×2 (14:25→16:09)
--- NOTE | 2016-06-24 15:05 | GENMEDPROG ---
Notes Reviewed: Yes Events from last night noted and discussed with Clinical Staff Current Medication List: Reviewed Currently: Reports: Cough - Physical Examination Vital Signs and I&O: Last Vital Signs Temp 98.8 F 06/24/16 14:25 Pulse 90 06/24/16 14:25 Resp 20 06/24/16 14:25 BP 141/66 06/24/16 14:25 Pulse Ox 98 06/24/16 14:25 Oxygen Pulse Oxygen Saturation 98 O2 Device Nasal Cannula Oxygen Flow Rate 4 Fraction of Inspired Oxygen ( FIO2) Intake & Output 06/21/16 06/22/16 06/23/16 06/24/16 23:59 23:59 23:59 23:59 Intake Total 437 591 Output Total 150 1725 Balance 287 -1134 Patient's weight 80.83 kg 80.881 kg General: Alert, Oriented x3, No acute distress, Well appearing, Well nourished HEENT: Normal (Normocephalic, atraumatic;EOMI.Sclera white, Nares patent, without discharge or bleeding. No oropharyngeal lesions or erythema. Mucous membranes are dry.) Neck: Non-tender, Full range of motion, Normal Trachea alignment, Normal inspection (No cervical lymphadenopathy. No supraclavicular lymphadenopathy.), No Masses palpable, Supple Lymphatics: Normal (No cervical lymphadenopathy. No supraclavicular lymphadenopathy.) Respiratory: Diminished, Rhonchi. negative: Rales, Wheezes Cardiovascular: Regular rate and rhythm (No bradycardia or tachycardia), Normal S1, No Gallops,Rubs/Murmurs, Normal S2, Good Pedal Pulses (DP pulses 2+ bilaterally) GI: Normal bowel sounds (normal active sounds), Soft (non-distended), Non tender , No hepatospenomegaly, No masses Extremities/Musculoskeletal: Normal pulses (DP pulses 2+ bilaterally) Skin: Warm,Dry and Intact, No rashes, No significant lesion Neurological: Normal tone, Cranial nerves 3-12 NL ( 2-12 grossly intact.) Psych/Mental Status: Appropriate, Normal Affect Lab/DI/Studies Reviewed: 06/23/16 13:14 06/23/16 13:14 Laboratory Results - last 24 hr 06/23/16 06/23/16 06/23/16 14:28 14:42 17:00 Magnesium Troponin I < 0.01 Urine Color Yellow Urine Clarity Clear Urine pH 6.0 Ur Specific [place] 1.005 Urine Protein 1+ H Urine Glucose (UA) Neg Urine Ketones Neg Urine Occult Blood Neg Urine Nitrite Neg Urine Bilirubin Neg Urine Urobilinogen 2 H Ur Leukocyte Esterase Neg Urine RBC 0-2 Urine WBC 0-2 Urine Bacteria Few Hyaline Casts 2-5 H Urine Mucus Mod H Blood Type O POSITIVE Antibody Screen Negative 06/23/16 06/23/16 06/24/16 20:10 20:10 06:34 Magnesium 2.40 H 2.60 H Troponin I < 0.01 Urine Color Urine Clarity Urine pH Ur Specific [place] Urine Protein Urine Glucose (UA) Urine Ketones Urine Occult Blood Urine Nitrite Urine Bilirubin Urine Urobilinogen Ur Leukocyte Esterase Urine RBC Urine WBC Urine Bacteria Hyaline Casts Urine Mucus Blood Type Antibody Screen - Assessment (1) Subcapital fracture of neck of left femur Acute S72.012A - UNSP INTRACAPSULAR FRACTURE OF LEFT FEMUR, INIT FOR CLOS FX Comment/Plan: Orthopedic consult obtained to get left hemiarthroplasty tomorrow. Patient only taking aspirin 81 mg daily preoperatively as he is unable to tolerate Xarelto. (2) Post herpetic neuralgia Chronic B02.29 - OTHER POSTHERPETIC NERVOUS SYSTEM INVOLVEMENT Comment/Plan : Continue gabapentin (3) CLL (chronic lymphocytic leukemia) Chronic C91.10 - CHRONIC LYMPHOCYTIC LEUK OF B-CELL TYPE NOT ACHIEVE REMIS Comment/Plan: Monitor counts. White blood cell counts have been stable. (4) Paroxysmal atrial fibrillation Chronic I48.0 - PAROXYSMAL ATRIAL FIBRILLATION Comment/Plan: Not taking Xarelto due to heme-positive stools. Control with amiodarone. (5) Hypokalemia Acute E87.6 - HYPOKALEMIA Comment/Plan: Supplementation taken place and rechecking today. Case Care Discussed with: Patient, Nursing Staff, Resource Management Education/Counseling Given To: Patient Education/Counseling Given Regarding: Diagnosis Total Time: 38 minutes Critical Care: No Code: [id number] (12+)
[2016-06-24 16:14] LABS: BLOOD UREA NITROGEN 12 MG/DL (9-20); CALCIUM 8.1 MG/DL (8.4-10.2); CALCULATED OSMOLALITY 269 MOs/Kg (270-290); CHLORIDE 107 mEq/L (98-107); GLUCOSE 92 MG/DL (70-99); SODIUM LEVEL 140 mEq/L (137-146)
[2016-06-24] MEDS ORDERED: PROMETHAZINE 25 MG/ML VIAL IV PRN (16:47)
[2016-06-24] MEDS: ONDANSETRON HCL 4 MG/2 ML VIAL IV PRN (16:55)
[2016-06-24] MEDS: Cefazolin 2gm/50 ml D5W 2 GM/50 ML RTU IV SCH ×2 (17:07→23:33)
[2016-06-24] MEDS: CEFTRIAXONE 1 GM in D5W 100 ML IV SCH (17:07)
[2016-06-24] MEDS: CALCIUM CARBONATE + VITAMIN D 500 MG TAB PO SCH (17:36)
[2016-06-24] MEDS: SODIUM CHLORIDE 0.9% 3 ML FLUSH FLUSH SCH (17:36)
[2016-06-24] MEDS: Aspirin (Orange Enteric Coated) 325 mg tab PO SCH (17:36)
[2016-06-24] MEDS ORDERED: OXYCODONE HCL 5 MG TABLET PO PRN ×3 (17:41→17:42)
[2016-06-24] MEDS ORDERED: LEVALBUTEROL 1.25 MG in 3 ML NEB NEB PRN (19:22)
[2016-06-24] MEDS: DOCUSATE-SENNA CONCENTRATE TAB PO SCH (21:13)
--- NOTE | 2016-06-25 01:12 | SC.ANESPOS ---
Post-Anesthesia Note LOC: Fully Awake Post-Anesthesia Assessment: Awake, Returned to Baseline, Hemodynamically Stable , Pain Control Adequate Phase I & II Recovery Complete: Yes Apparent Anesthesia Complication: No : N PACU Discharge Time: 13:55 - Vital Signs Blood Pressure: 128/59 Pulse: 107 Resp Rate: 20 O2 Sat: 94 Temp: 98.2 F - Comments Anesthesia Discharge Time Report Time 13:55
[2016-06-25] MEDS: MORPHINE 2 MG/ML INJECTION IV PRN ×3 (01:47→08:45)
[2016-06-25] MEDS: Albuterol/Ipratropium Neb 3 ML NEB NEB SCH ×4 (01:58→19:38)
[2016-06-25] MEDS: SODIUM CHLORIDE 0.9% 3 ML FLUSH FLUSH SCH ×2 (03:19→16:32)
[2016-06-25] MEDS: ONDANSETRON HCL 4 MG/2 ML VIAL IV PRN (05:54)
[2016-06-25] MEDS: ACETAMINOPHEN 325 MG/TAB TABLET PO SCH ×3 (05:54→21:12)
[2016-06-25 07:53] LABS: BLOOD UREA NITROGEN 15 MG/DL (9-20); CALCIUM 7.8 MG/DL (8.4-10.2); CALCULATED OSMOLALITY 270 MOs/Kg (270-290); CHLORIDE 107 mEq/L (98-107); GLUCOSE 119 MG/DL (70-99); MPV 7.7 fL (7.4-10.4); SODIUM LEVEL 139 mEq/L (137-146)
[2016-06-25] MEDS ORDERED: Remove Transdermal Scopolamine Patch after 24 hours ONE (08:00)
--- NOTE | 2016-06-25 08:20 | PCM.ORTHBL ---
- Subjective Post Op Day: 1 Daily Assessment - Patient: Reports: No new complaints, Awake Alert Oriented x4 , Feels better, Pain is less (Although he does report mild knee pain today), Tolerating Regular Diet, Afebrile, Ambulating with Physical Therapist, Other ( He does have increased cough. Denies chest pain.). Denies: Difficulty Swallowing, Shortness of breath, Nausea, Vomiting - Objective / Physical Exam Vital Signs: Temperature: 98.4 F (06/25/16 05:30) HR: 100 (06/25/16 05:30)RR: 20 (06/25/16 05 :30) BP: 134/62 (06/25/16 05:30)Pulse Ox: 94 (06/25/16 05:30) General: Alert, Oriented x3, Cooperative, No acute distress, Well appearing Musculoskeletal / Extremities: 2 plus Dorsalis Pedis Pulse, Dressing Clean/Dry/ Intact, Other (Mild tenderness along the lateral knee.). negative: Tenderness ( no calf tenderness) Neurological: Positive Sensation First Dorsal Web Space, Sensation to light touch intact, Extensor Hallicus Longus Intact, Flexor Hallicus Longus Intact, Dorsiflexion Intact, Plantarflexion Intact Laboratory/Diagnostics Reviewed: 06/25/16 06:37 06/25/16 06:37 - Assessment and Plan (1) Subcapital fracture of neck of left femur Acute S72.012A - UNSP INTRACAPSULAR FRACTURE OF LEFT FEMUR, INIT FOR CLOS FX Present on Admission: Yes Plan: POD#1 s/p left hip hemiarthroplasty PT/OT/WBAT TEDS/SCDS/ECASA 325mg BID for 30 days post-op Continue pain management Patient has been started on Rocephin due to his cough D/C plan for rehab/SNF
[2016-06-25] MEDS: Cefazolin 2gm/50 ml D5W 2 GM/50 ML RTU IV SCH (08:41)
[2016-06-25] MEDS: AMIODARONE 200 MG TAB PO SCH (08:42)
[2016-06-25] MEDS: Aspirin (Orange Enteric Coated) 325 mg tab PO SCH ×2 (08:42→16:33)
[2016-06-25] MEDS: CALCIUM CARBONATE + VITAMIN D 500 MG TAB PO SCH ×2 (08:43→16:33)
[2016-06-25] MEDS: ALLOPURINOL 100 MG TAB PO SCH (08:43)
[2016-06-25] MEDS: GABAPENTIN 800 MG TAB PO SCH (08:43)
--- NOTE | 2016-06-25 12:48 | GENMEDPROG ---
Chief Complaint: Feels ok. Mild confusion. Some cough and congestion but no shortness of breath Notes Reviewed: Yes Events from last night noted and discussed with Clinical Staff Current Medication List: Reviewed Currently: Reports: Cough. Denies: Wheezing, GONSALVES, SOB, Nausea and Vomiting, Abdominal Pain - Physical Examination Vital Signs and I&O: Last Vital Signs Temp 97.2 F L 06/25/16 09:53 Pulse 99 06/25/16 09:53 Resp 18 06/25/16 09:53 BP 106/58 L 06/25/16 09:53 Pulse Ox 93 06/25/16 09:53 Oxygen Pulse Oxygen Saturation 93 O2 Device Nasal Cannula Oxygen Flow Rate 3 Fraction of Inspired Oxygen ( FIO2) Intake & Output 06/22/16 06/23/16 06/24/16 06/25/16 23:59 23:59 23:59 23:59 Intake Total 071 403 1951 Output Total 150 2675 400 Balance 287 -8029 1168 Patient's weight 80.83 kg 80.881 kg 80.966 kg General: Alert, Oriented x3, Cooperative, No acute distress, Well appearing HEENT: Normal, PERRLA, EOMI, Anicteric Sclera Neck: Non-tender, Full range of motion, Normal Trachea alignment, Normal inspection. negative: JVD Lymphatics: Normal, Adenopathy Respiratory: Rales (Dry rales which are chronic) Cardiovascular: Regular rate and rhythm, No Gallops,Rubs/Murmurs GI: Normal bowel sounds, Soft, Non tender, No hepatospenomegaly, No masses Extremities/Musculoskeletal: Tenderness. negative: Swelling, Edema Skin: Warm,Dry and Intact, No rashes, No breakdown Neurological: Normal Steady Gait, Normal speech, Strength at 5/5 X4 ext Psych/Mental Status: Appropriate, Normal Affect, Cooperative Lab/DI/Studies Reviewed: Laboratory Results - last 24 hr 06/24/16 06/25/16 06/25/16 06:34 06:37 06:37 WBC 17.7 H RBC 4.38 L Hgb 11.5 L D Hct 36.6 L MCV 84 MCH 26.3 L MCHC 31.5 L RDW 15.0 H Plt Count 151 MPV 7.7 Sodium 140 139 Potassium 4.5 D 4.4 Chloride 107 107 Carbon Dioxide 26 25 Anion Gap 12 11 BUN 12 15 Creatinine 0.70 0.80 Estimated GFR (MDRD) > 60 > 60 Glucose 92 119 H Calculated Osmolality 269 L 270 Calcium 8.1 L 7.8 L - Assessment (1) Hip fracture Acute S72.009A - FRACTURE OF UNSP PART OF NECK OF UNSP FEMUR, INIT Qualifiers: Encounter type: initial encounter Fracture type: closed Laterality: left Qualified Code(s): S72.002A - Fracture of unspecified part of neck of left femur, initial encounter for closed fracture Comment/Plan: Status post left hemiarthroplasty. Pain control and physical therapy. Patient is very motivated to increase activity levels. Will need short-term longterm facility placement. Aspirin for DVT prophylaxis per Ortho recommendation. (2) Hypokalemia Acute E87.6 - HYPOKALEMIA Comment/Plan: Replete as needed (3) CLL (chronic lymphocytic leukemia) Chronic C91.10 - CHRONIC LYMPHOCYTIC LEUK OF B-CELL TYPE NOT ACHIEVE REMIS Comment/Plan: Continue to monitor. White blood count is stable. (4) Post herpetic neuralgia Chronic B02.29 - OTHER POSTHERPETIC NERVOUS SYSTEM INVOLVEMENT Comment/Plan : Continue Neurontin. P.r.n. analgesics. (5) Paroxysmal atrial fibrillation Chronic I48.0 - PAROXYSMAL ATRIAL FIBRILLATION Comment/Plan: Continue current medications. Not on Xarelto due to falls and heme-positive stool Case Care Discussed with: Patient, Nursing Staff, Resource Management, Respiratory Therapy, Investor Relations Director
[2016-06-25] MEDS: CEFTRIAXONE 1 GM in D5W 100 ML IV SCH (16:31)
[2016-06-25] MEDS: NS/KCl 20 mEq 1,000 ML IV SCH (16:32)
[2016-06-25] MEDS: DOCUSATE-SENNA CONCENTRATE TAB PO SCH (21:13)
[2016-06-26] MEDS: Albuterol/Ipratropium Neb 3 ML NEB NEB SCH ×4 (01:13→20:35)
[2016-06-26] MEDS: ACETAMINOPHEN 325 MG/TAB TABLET PO SCH ×3 (05:25→21:59)
[2016-06-26] MEDS: SODIUM CHLORIDE 0.9% 3 ML FLUSH FLUSH SCH ×2 (05:25→18:15)
--- NOTE | 2016-06-26 06:27 | PCM.ORTHBL ---
- Subjective Post Op Day: 2 Daily Assessment - Patient: Reports: No new complaints, Awake Alert Oriented x4 , Feels better, Pain is less, Tolerating Regular Diet, Voiding without difficulty, Afebrile, Ambulating with Physical Therapist, Other (Continues to have cough, although he feels it has improved. Denies chest pain). Denies: Difficulty Swallowing, Shortness of breath, Nausea, Vomiting - Objective / Physical Exam Vital Signs: Temperature: 97.9 F (06/26/16 06:00) HR: 96 (06/26/16 06:00)RR: 18 (06/26/16 06: 00) BP: 104/51 (06/26/16 06:00)Pulse Ox: 94 (06/26/16 06:00) General: Alert, Oriented x3, Cooperative, No acute distress, Well appearing Musculoskeletal / Extremities: 2 plus Dorsalis Pedis Pulse, Dressing Clean/Dry/ Intact. negative: Tenderness (no significant calf tenderness) Neurological: Positive Sensation First Dorsal Web Space, Sensation to light touch intact, Extensor Hallicus Longus Intact, Flexor Hallicus Longus Intact, Dorsiflexion Intact, Plantarflexion Intact - Assessment and Plan (1) Subcapital fracture of neck of left femur Acute S72.012A - UNSP INTRACAPSULAR FRACTURE OF LEFT FEMUR, INIT FOR CLOS FX Present on Admission: Yes Plan: POD#2 s/p left hip hemiarthroplasty PT/OT/WBAT TEDS/SCDS/ECASA 325mg BID for 30 days post-op for DVT prophylaxis Continue pain management D/C plan for SNF/rehab
[2016-06-26 07:37] LABS: MPV 7.5 fL (7.4-10.4)
[2016-06-26] MEDS: AMIODARONE 200 MG TAB PO SCH (08:37)
[2016-06-26] MEDS: Aspirin (Orange Enteric Coated) 325 mg tab PO SCH ×2 (08:37→17:20)
[2016-06-26] MEDS: GABAPENTIN 800 MG TAB PO SCH (08:37)
[2016-06-26] MEDS: ALLOPURINOL 100 MG TAB PO SCH (08:38)
[2016-06-26] MEDS: CALCIUM CARBONATE + VITAMIN D 500 MG TAB PO SCH ×2 (11:22→17:20)
--- NOTE | 2016-06-26 16:25 | GENMEDPROG ---
Chief Complaint: Overall doing well with no complaints. Denies shortness of breath. I did watch him stand up and work with physical therapy Notes Reviewed: Yes Events from last night noted and discussed with Clinical Staff Current Medication List: Reviewed Currently: Reports: Cough. Denies: Wheezing, GONSALVES, SOB, Nausea and Vomiting, Abdominal Pain - Physical Examination Vital Signs and I&O: Last Vital Signs Temp 98.3 F 06/26/16 13:49 Pulse 102 06/26/16 13:49 Resp 20 06/26/16 13:49 BP 109/52 L 06/26/16 13:49 Pulse Ox 95 06/26/16 13:49 Oxygen Pulse Oxygen Saturation 95 O2 Device Nasal Cannula Oxygen Flow Rate 3 Fraction of Inspired Oxygen ( FIO2) Intake & Output 06/23/16 06/24/16 06/25/16 06/26/16 23:59 23:59 23:59 23:59 Intake Total 051 337 8821 1140 Output Total 150 2675 800 1225 Balance 287 -1844 1709 -85 Patient's weight 80.83 kg 80.881 kg 80.966 kg 81.42 kg General: Alert, Oriented x3, Cooperative, No acute distress, Well appearing HEENT: Normal, PERRLA, EOMI, Anicteric Sclera Neck: Non-tender, Full range of motion, Normal Trachea alignment, Normal inspection. negative: JVD Lymphatics: Normal. negative: Adenopathy Respiratory: Rales (Dry rales at the bases). negative: Wheezes Cardiovascular: Regular rate and rhythm, No Gallops,Rubs/Murmurs GI: Normal bowel sounds, Soft, Non tender, No hepatospenomegaly Extremities/Musculoskeletal: Normal pulses, Tenderness, Swelling Skin: No rashes, No breakdown, No significant lesion Neurological: Normal speech, Strength at 5/5 X4 ext, Normal tone, Cranial nerves 3-12 NL Psych/Mental Status: Appropriate, Normal Affect, Cooperative Lab/DI/Studies Reviewed: Laboratory Results - last 24 hr 06/26/16 06:40 WBC 14.4 H RBC 3.99 L Hgb 10.6 L Hct 33.7 L MCV 85 MCH 26.7 L MCHC 31.5 L RDW 15.1 H Plt Count 129 L MPV 7.5 - Assessment (1) Hip fracture Acute S72.009A - FRACTURE OF UNSP PART OF NECK OF UNSP FEMUR, INIT Qualifiers: Encounter type: initial encounter Fracture type: closed Laterality: left Qualified Code(s): S72.002A - Fracture of unspecified part of neck of left femur, initial encounter for closed fracture Comment/Plan: Status post left hemiarthroplasty. Pain control and physical therapy. Patient is very motivated to increase activity levels. Likely to [facility] facility tomorrow pending insurance approval. Aspirin for DVT prophylaxis per Ortho recommendation. (2) Hypokalemia Acute E87.6 - HYPOKALEMIA Comment/Plan: Replete as needed (3) CLL (chronic lymphocytic leukemia) Chronic C91.10 - CHRONIC LYMPHOCYTIC LEUK OF B-CELL TYPE NOT ACHIEVE REMIS Comment/Plan: Continue to monitor. White blood count is stable. (4) Post herpetic neuralgia Chronic B02.29 - OTHER POSTHERPETIC NERVOUS SYSTEM INVOLVEMENT Comment/Plan : Continue Neurontin. P.r.n. analgesics. (5) Paroxysmal atrial fibrillation Chronic I48.0 - PAROXYSMAL ATRIAL FIBRILLATION Comment/Plan: Continue current medications. Not on Xarelto due to falls and heme-positive stool Case Care Discussed with: Patient, Nursing Staff, Resource Management
[2016-06-26] MEDS: CEFTRIAXONE 1 GM in D5W 100 ML IV SCH (17:20)
[2016-06-26] MEDS: DOCUSATE-SENNA CONCENTRATE TAB PO SCH (21:58)
[2016-06-26] MEDS: NS/KCl 20 mEq 1,000 ML IV SCH (23:01)
[2016-06-27] MEDS: Albuterol/Ipratropium Neb 3 ML NEB NEB SCH ×4 (02:32→19:13)
[2016-06-27] MEDS: SODIUM CHLORIDE 0.9% 3 ML FLUSH FLUSH SCH ×2 (06:30→16:59)
[2016-06-27] MEDS: ACETAMINOPHEN 325 MG/TAB TABLET PO SCH ×3 (06:30→22:03)
[2016-06-27 07:20] LABS: MPV 7.7 fL (7.4-10.4)
[2016-06-27] MEDS: Aspirin (Orange Enteric Coated) 325 mg tab PO SCH ×2 (07:52→16:59)
[2016-06-27] MEDS: AMIODARONE 200 MG TAB PO SCH (07:53)
[2016-06-27] MEDS: GABAPENTIN 800 MG TAB PO SCH (07:53)
[2016-06-27] MEDS: ALLOPURINOL 100 MG TAB PO SCH (07:53)
--- NOTE | 2016-06-27 09:18 | PCM.ORTHBL ---
- Subjective Post Op Day: 3 Daily Assessment - Patient: Reports: No new complaints, Awake Alert Oriented x4 , Feels better (weakness improving in LLE), Pain is less, Tolerating Regular Diet, Voiding without difficulty, Afebrile, Ambulating with Physical Therapist ( has been limited by O2 stats), Other (Feels cough improving. Denies chest pain) . Denies: Shortness of breath, Nausea, Vomiting - Objective / Physical Exam Vital Signs: Temperature: 98.0 F (06/27/16 05:27) HR: 88 (06/27/16 07:49)RR: 18 (06/27/16 05: 27) BP: 104/48 (06/27/16 07:49)Pulse Ox: 95 (06/27/16 07:32) General: Alert, Oriented x3, Cooperative, No acute distress, Well appearing Musculoskeletal / Extremities: 2 plus Dorsalis Pedis Pulse, Dressing Clean/Dry/ Intact. negative: Tenderness (no calf tenderness) Neurological: Positive Sensation First Dorsal Web Space, Sensation to light touch intact, Extensor Hallicus Longus Intact, Flexor Hallicus Longus Intact, Dorsiflexion Intact, Plantarflexion Intact Laboratory/Diagnostics Reviewed: 06/27/16 06:19 06/25/16 06:37 - Assessment and Plan (1) Subcapital fracture of neck of left femur Acute S72.012A - UNSP INTRACAPSULAR FRACTURE OF LEFT FEMUR, INIT FOR CLOS FX Present on Admission: Yes Plan: s/p left hip hemiarthroplasty PT/OT/WBAT TEDS/SCDS/ECASA 325mg BID for 30 days post-op for DVT prophylaxis Continue pain management D/c planning for rehab/SNF. Patient would like to go to [facility]
--- NOTE | 2016-06-27 10:14 | PCM.DCS92 ---
- Final/Secondary Discharge Diagnosis (1) Subcapital fracture of neck of left femur Acute S72.012A - UNSP INTRACAPSULAR FRACTURE OF LEFT FEMUR, INIT FOR CLOS FX Present on Admission: Yes Discharge Disposition: [facility] Facility Discharge Condition: Improved Cognitive Discharge Status: Unimpaired Fuctional Discharge Status: Walker Assistance, Recent lower extremety joint replacement, Post-op Weakness Physician Follow up/Referrals: Rylee Fortune MD [Primary Care Provider] - One Week Cash Rush MD [Staff Physician] - Two Weeks New Prescriptions: Aspirin (OrangeEnteric Coated) [Ecotrin] 325 mg PO BID #60 tab Docusate-Senna Concentrate [Senokot S or Roslyn Colace] 1 each PO QHS #30 tab Oxycodone Immediate Release [Oxycodone Immediate Release (OxyIR)] 5 mg PO Q4H PRN #40 tab PRN Reason: Pain Diet at Discharge: As Tolerated, Cardiac Activity: As Tolerated, No Heavy Lifting, No Driving Call Office For: Worsening Symptoms, Wound is Draining Pus, Fever over 101 F, Fever over 100.5, Wound is Painful, Wound is Red, Weight Gain (see below), Pain Uncontrolled By Meds, Other (See Details) Discontinue use of:: Alcohol, All Illegal Substances, All Types of Tobacco - DC Summary Notes Hospital Course Note:: Discharge summary on patient named RAISA LIZAMA admitted to [facility] on 06/23/16 by Juan Dumont MD. Date of discharge is [06/28/16]. Afebrile. Hospital course and surgery uneventful. Progressing with PT, although this has been limited by SOB and O2 stats. Continue pain management. ECASA 325mg BID for 30 days post-op for DVT prophylaxis. Aquacel dressing to be removed on POD#7, then daily dry dressing changes as needed. Stable for discharge to SNF. To follow-up in office in 2 weeks or earlier as needed. Wound Care Surgical Site: Yes May Shower Starting:: upon discharge Dressing/Site Care (if applicable): Aquacel to be removed on POD#7, then daily dry dressing changes as needed Medical Equipment (Order must still be written on paper): Walker Remove Transdermal Scopalamine patch if present: YES Medication Instructions: Take Stool Softener Continue Ice Packs/Ice Machine to Operative Area: Yes Weight Bearing: Full Current Dressing: Aquacel Dressing Care: Keep Wound Clean & Dry, Shower with Tegaderm Dsg, No Tub Baths, Other Instructions Below (Aquacel to be removed on POD#7, then daily dry dressing changes as needed) - Physical Exam Vital Signs: Initial Vitals Temperature 98.3 F 06/23/16 12:52 Pulse Rate 90 06/23/16 12:52 Respiratory Rate 20 06/23/16 12:52 Blood Pressure 153/69 06/23/16 12:52 Pulse Oxygen Saturation 93 06/23/16 12:52 Constitutional: No apparent distress, Alert, Well appearing Oriented to: Time, Person, Place - Musculoskeletal Extremities: Pedal Pulse, Other (dressing clean, dry, intact). negative: Calf Tenderness - Neurologic Memory Impaired: Normal Motor Function: Normal Cranial Nerve: Normal Cerebellar: Normal Mood Description: Normal Thought: Coherent Perception: Normal
[2016-06-27] MEDS: CALCIUM CARBONATE + VITAMIN D 500 MG TAB PO SCH ×2 (11:00→16:59)
--- NOTE | 2016-06-27 15:21 | GENMEDPROG ---
Chief Complaint: Slowly better. Less pain. He did ambulate a few feet today. Waiting on insurance approval for long term facility placement Notes Reviewed: Yes Events from last night noted and discussed with Clinical Staff Current Medication List: Reviewed Currently: Reports: Cough. Denies: Wheezing, GONSALVES, SOB, Nausea and Vomiting, Abdominal Pain DVT Prophylaxis: Yes - Physical Examination Vital Signs and I&O: Last Vital Signs Temp 97.5 F 06/27/16 14:02 Pulse 95 06/27/16 14:02 Resp 18 06/27/16 14:02 BP 119/59 L 06/27/16 14:02 Pulse Ox 99 06/27/16 14:02 Oxygen Pulse Oxygen Saturation 99 O2 Device Nasal Cannula Oxygen Flow Rate 3 Fraction of Inspired Oxygen ( FIO2) Intake & Output 06/24/16 06/25/16 06/26/16 06/27/16 23:59 23:59 23:59 23:59 Intake Total 831 2509 1560 713 Output Total 2675 800 1375 650 Balance -1844 1709 185 63 Patient's weight 80.881 kg 80.966 kg 81.42 kg 83.053 kg General: Alert, Oriented x3, Cooperative, No acute distress, Well appearing HEENT: Normal, PERRLA, EOMI, Anicteric Sclera Neck: Non-tender, Full range of motion, Normal Trachea alignment, Normal inspection. negative: JVD Lymphatics: Normal. negative: Adenopathy Respiratory: Rales, Rhonchi Cardiovascular: Regular rate and rhythm, No Gallops,Rubs/Murmurs GI: Normal bowel sounds, Soft, Non tender, No hepatospenomegaly Extremities/Musculoskeletal: Tenderness. negative: Swelling, Edema Skin: Warm,Dry and Intact, No rashes, No breakdown Neurological: Normal speech, Reflexes 2+. negative: Strength at 5/5 X4 ext ( Diminished on left due to pain) Psych/Mental Status: Appropriate, Normal Affect, Cooperative Lab/DI/Studies Reviewed: Laboratory Results - last 24 hr 06/27/16 06:19 WBC 12.5 H RBC 3.78 L Hgb 10.0 L Hct 31.5 L MCV 84 MCH 26.5 L MCHC 31.7 L RDW 15.1 H Plt Count 144 MPV 7.7 - Assessment (1) Hip fracture Acute S72.009A - FRACTURE OF UNSP PART OF NECK OF UNSP FEMUR, INIT Qualifiers: Encounter type: initial encounter Fracture type: closed Laterality: left Qualified Code(s): S72.002A - Fracture of unspecified part of neck of left femur, initial encounter for closed fracture Comment/Plan: Status post left hemiarthroplasty. Pain control and physical therapy. Patient is very motivated to increase activity levels. Waiting on nursing facility placement and insurance approval. Aspirin for DVT prophylaxis per Ortho recommendation. (2) Hypokalemia Acute E87.6 - HYPOKALEMIA Comment/Plan: Replete as needed (3) CLL (chronic lymphocytic leukemia) Chronic C91.10 - CHRONIC LYMPHOCYTIC LEUK OF B-CELL TYPE NOT ACHIEVE REMIS Comment/Plan: Continue to monitor. White blood count is stable. (4) Post herpetic neuralgia Chronic B02.29 - OTHER POSTHERPETIC NERVOUS SYSTEM INVOLVEMENT Comment/Plan : Continue Neurontin. P.r.n. analgesics. (5) Paroxysmal atrial fibrillation Chronic I48.0 - PAROXYSMAL ATRIAL FIBRILLATION Comment/Plan: Continue current medications. Not on Xarelto due to falls and heme-positive stool Case Care Discussed with: Patient, Nursing Staff, Occupational Therapy, Physical Therapy, Resource Management, Respiratory Therapy, Information Assistant
[2016-06-27] MEDS: CEFTRIAXONE 1 GM in D5W 100 ML IV SCH (16:59)
[2016-06-27] MEDS: DOCUSATE-SENNA CONCENTRATE TAB PO SCH (22:03)
[2016-06-28] MEDS: Albuterol/Ipratropium Neb 3 ML NEB NEB SCH ×3 (02:45→13:22)
[2016-06-28] MEDS: ACETAMINOPHEN 325 MG/TAB TABLET PO SCH ×2 (05:15→15:51)
[2016-06-28] MEDS: SODIUM CHLORIDE 0.9% 3 ML FLUSH FLUSH SCH (05:15)
--- NOTE | 2016-06-28 06:25 | PCM.ORTHBL ---
- Subjective Post Op Day: 4 Daily Assessment - Patient: Reports: No new complaints, Awake Alert Oriented x4 , Feels better, Pain is less, Tolerating Regular Diet, Voiding without difficulty, Afebrile, Ambulating with Physical Therapist (still somewhat limited secondary to fatigue and O2 sats), Other (No coughing this morning yet. Denies chest pain). Denies: Difficulty Swallowing, Shortness of breath, Nausea, Vomiting - Objective / Physical Exam Vital Signs: Temperature: 98.1 F (06/28/16 06:00) HR: 92 (06/28/16 06:00)RR: 20 (06/28/16 06: 00) BP: 124/57 (06/28/16 06:00)Pulse Ox: 95 (06/28/16 06:00) General: Alert, Oriented x3, Cooperative, No acute distress, Well appearing Musculoskeletal / Extremities: 2 plus Dorsalis Pedis Pulse, Dressing Clean/Dry/ Intact. negative: Tenderness (no calf tenderness) Neurological: Positive Sensation First Dorsal Web Space, Sensation to light touch intact, Extensor Hallicus Longus Intact, Flexor Hallicus Longus Intact, Dorsiflexion Intact, Plantarflexion Intact - Assessment and Plan (1) Subcapital fracture of neck of left femur Acute S72.012A - UNSP INTRACAPSULAR FRACTURE OF LEFT FEMUR, INIT FOR CLOS FX Present on Admission: Yes Plan: s/p left hip hemiarthroplasty PT/OT/WBAT TEDS/SCDS/ECASA 325mg BID for 30 days post-op for DVT prophylaxis Continue pain management D/c planning, awaiting approval for SNF
[2016-06-28] MEDS: AMIODARONE 200 MG TAB PO SCH (07:57)
[2016-06-28] MEDS: Aspirin (Orange Enteric Coated) 325 mg tab PO SCH (07:57)
[2016-06-28] MEDS: ALLOPURINOL 100 MG TAB PO SCH (07:58)
[2016-06-28] MEDS: CALCIUM CARBONATE + VITAMIN D 500 MG TAB PO SCH (12:16)
[2016-06-28 14:07] VITALS: BP 142/62; PULSE 90; TEMP 97.5
--- NOTE | 2016-06-28 14:34 | PCM.DCS92 ---
- Final/Secondary Discharge Diagnosis (1) Hip fracture Acute S72.009A - FRACTURE OF UNSP PART OF NECK OF UNSP FEMUR, INIT initial encounter closed left S72.002A - Fracture of unspecified part of neck of left femur, initial encounter for closed fracture Comment: Status post left hemiarthroplasty. Pain control and physical therapy. Patient is very motivated to increase activity levels. Stable for transfer to senior care facility. Aspirin for DVT prophylaxis per Ortho recommendation. (2) Hypokalemia Resolved E87.6 - HYPOKALEMIA Present on Admission: Yes Comment: Replete as needed (3) CLL (chronic lymphocytic leukemia) Chronic C91.10 - CHRONIC LYMPHOCYTIC LEUK OF B-CELL TYPE NOT ACHIEVE REMIS Present on Admission: Yes Comment: Continue to monitor. White blood count is stable. (4) Post herpetic neuralgia Chronic B02.29 - OTHER POSTHERPETIC NERVOUS SYSTEM INVOLVEMENT Present on Admission: Yes Comment: Continue Neurontin. P.r.n. analgesics. (5) Paroxysmal atrial fibrillation Chronic I48.0 - PAROXYSMAL ATRIAL FIBRILLATION Present on Admission: Yes Comment: Continue current medications. Not on Xarelto due to falls and heme- positive stool Discharge Disposition: [facility] Facility Discharge Condition: Improved Cognitive Discharge Status: Unimpaired Fuctional Discharge Status: Deconditioning, Recent lower extremety joint replacement, Ambulatory Dysfunction Physician Follow up/Referrals: Cash Rush MD [Staff Physician] - Two Weeks Rylee Fortune MD [Primary Care Provider] - One Week New Prescriptions: Aspirin (OrangeEnteric Coated) [Ecotrin] 325 mg PO BID #60 tab Docusate-Senna Concentrate [Senokot S or Roslyn Colace] 1 each PO QHS #30 tab Oxycodone Immediate Release [Oxycodone Immediate Release (OxyIR)] 5 mg PO Q4H PRN #40 tab PRN Reason: Pain Discharge Home Medication List Allopurinol [Zyloprim] 100 mg PO DAILY 04/30/13 [History Confirmed 06/23/16 Last Taken 06/23/16] Gabapentin [Neurontin] 800 mg PO DAILY 04/30/13 [History Confirmed 06/23/16 Last Taken 06/22/16] Amiodarone [Cordarone, Pacerone] 200 mg PO DAILY 05/30/16 [History Confirmed 12/02 Last Taken 06/23/16] Lisinopril [Prinivil] 20 mg PO DAILY 05/30/16 [History Confirmed 06/23/16 Last Taken 06/22/16] Albuterol/Ipratropium Neb [Duoneb] 3 ml NEB Q6H #40 nebu 06/06/16 [Rx Confirmed 06/23/16 Last Taken 06/21/16] Guaifenesin [Mucinex] 1,200 mg PO BID #20 tbmp.12hr 06/06/16 [Rx Confirmed 06/23 Last Taken 06/16/16] Levalbuterol [Xopenex Hfa] 15 gm IH Q6 #2 inh 06/06/16 [Rx Confirmed 06/23/16 Last Taken 06/22/16] Prednisone 10 mg PO DAILY #20 tab.ds.pk 06/06/16 [Rx Confirmed 06/23/16 Last Taken 06/23/16] Ascorbic Acid [Vitamin C] 1,000 mg PO DAILY 06/23/16 [History Confirmed Last Taken 06/23/16] Aspirin (OrangeEnteric Coated) [Ecotrin] 325 mg PO BID #60 tab 06/26/16 [Rx Last Taken Unknown] Docusate-Senna Concentrate [Senokot S or Roslyn Colace] 1 each PO QHS #30 tab 03/04 [Rx Last Taken Unknown] Oxycodone Immediate Release [Oxycodone Immediate Release (OxyIR)] 5 mg PO Q4H PRN #40 tab 06/26/16 [Rx Last Taken Unknown] O2 Device: Nasal Cannula Diet at Discharge: As Tolerated, Cardiac Activity: As Tolerated, No Heavy Lifting, No Driving Call Office For: Worsening Symptoms, Wound is Draining Pus, Fever over 101 F, Fever over 100.5, Wound is Painful, Wound is Red, Weight Gain (see below), Pain Uncontrolled By Meds, Other (See Details) Discontinue use of:: Alcohol, All Illegal Substances, All Types of Tobacco - DC Summary Notes Hospital Course Note:: Discharge summary on patient named RAISA ABDALLA admitted to [facility] on 06/23/16 by Juan Dumont MD. Date of discharge is []. Mr. Abdalla is a pleasant 85-year-old white male with history of COPD on home oxygen who presented to the emergency room after a fall. He had recently been hospitalized in May for pneumonia. Had been doing well and recovering. He apparently slipped and fell on concrete floor at home. He states that his left leg slipped and shifted underneath him. He was found to have a left hip fracture. He was admitted to the hospital for further evaluation and management. He was seen in consultation by Orthopedics and underwent a left hip hemiarthroplasty. Postoperative course has been stable. He has been working very hard with physical therapy and has made steady progress. He remains limited due to pain but has been able to ambulate several feet in his room. His vitals have been stable and his respiratory status is at baseline. 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 Overall he feels well and is eager to get to senior care facility to continue his physical therapy and rehab. At this point he has reached maximal hospital benefit and is stable for discharge. Total Time: 45 minutes Wound Care Surgical Site: Yes May Shower Starting:: upon discharge Dressing/Site Care (if applicable): Aquacel to be removed on POD#7, then daily dry dressing changes as needed - Physical Exam Vital Signs: Last Vital Signs Temp 97.5 F 06/28/16 14:07 Pulse 90 06/28/16 14:07 Resp 18 06/28/16 14:07 BP 142/62 06/28/16 14:07 Pulse Ox 95 06/28/16 14:07 Oxygen Pulse Oxygen Saturation 95 O2 Device Nasal Cannula Oxygen Flow Rate 2 Fraction of Inspired Oxygen ( FIO2) Constitutional: No apparent distress, Alert (Awake, Fully oriented. Normal and appropriate affect.Well appearing. Well nourished.), Well nourished, Well appearing Oriented to: Time, Person, Place - HEENT Head: Normal (normocephalic, atraumatic.), Other (No cervical lymphadenopathy. No supraclavicular lymphadenopathy. Neck: No palpable mass, supple , trachea midline.) Eye: Normal (pupils equal, reactive to light, and round; EOMI, Sclera white) Oropharynx: Normal (Pharynx: Moist without exudate,Gums-no swelling, No oropharyngeal lesions or erythema, Mucous membranes are dry.) Tympanic Membrane: Normal (no discharge) ENT EAC: Normal (No oropharyngeal lesions or erythema. Mucous membranes are dry. ) TMJ: Normal Nose: No Symptoms Reported (septum midline, Nares patent, without discharge or bleeding.) - Respiratory/Cardiovascular Respiratory: Rales (Chronic dry) Cardiovascular: Normal - GI Auscultation: Normal (normal active sounds) Palpation: Normal (Soft,non distended,nontender. No hepatosplenomegaly.) Tenderness: Non tender (No rebound or guarding) Gregory's Sign: Negative - Musculoskeletal Back: Normal (Non-Tender) Extremities: Normal (Normal tone, DP pulses 2+ bilaterally, No cyanosis or edema bilaterally, FROM bilaterally.) - Integumentary Skin: Warm, Dry Lymphatics: Normal. negative: Adenopathy - Neurologic Memory Impaired: Normal Motor Function: Other (Deconditioned and weak on left side) Cerebellar: Normal (Babinski: toes downgoing bilaterally. Intact Finger to nose. Sensory grossly intact to light touch. Intact rapid alternating movements bilaterally. No pronator drift.) Mood Description: Normal (Fully oriented. Normal and appropriate affect.) Thought: Coherent Perception: Normal (Normal and appropriate affect.)
[2016-06-28] MEDS ORDERED: GABAPENTIN 800 MG TAB PO SCH (18:00)
== END 2016-06-28 16:14 | DRG 470 ==
LOC: ED 12:51 → MPS3 15:19
PROVIDERS: ADMIT Internal Medicine; ATTEND Hospitalist
PROC: 0SRS01A Replacement of Left Hip Joint, Femoral Surface with Metal Synthetic Substitute, Uncemented, Open Approach (ICD-10-PCS; principal; 2016-06-23)
DX: S72.012A Unspecified intracapsular fracture of left femur, initial encounter for closed fracture (principal); C91.10 Chronic lymphocytic leukemia of B-cell type not having achieved remission; I48.0 Paroxysmal atrial fibrillation; B02.29 Other postherpetic nervous system involvement; W01.0XXA Fall on same level from slipping, tripping and stumbling without subsequent striking against object, initial encounter; Z79.899 Other long term (current) drug therapy; Z79.52 Long term (current) use of systemic steroids; K21.9 Gastro-esophageal reflux disease without esophagitis; I10 Essential (primary) hypertension; Z87.891 Personal history of nicotine dependence; E87.6 Hypokalemia; Z91.81 History of falling
CPT/HCPCS: 36415; 71010; 72170; 73502; 80048; 80053; 81001; 83735; 84484; 85007; 85027; 85610; 85730; 86850; 86900; 86901; 87070; 87205; 87641; 93005; 94640; 96374; 97162; 97165; 99284; G0237; J0330; J0690; J0696; J1170; J2001; J2270; J2370; J2405; J2710; J3010; J3370; J3475; J3490; J7040; J7060; J7614; J7620